=== PATIENT | female | born 1935 | race Caucasian/White ===

== ENCOUNTER 2018-02-03 12:56 | Emergency (ER) | payer MEDICARE, BC ==
[~2018-02-03] VITALS: Ht 160 cm; Wt 75.0 kg
[2018-02-03] MEDS ORDERED: lactulose 20gm/30ml cup PO ONE (15:10)
[2018-02-03] MEDS ORDERED: NA P230E PR (15:17)
[2018-02-03] MEDS ORDERED: polyethylene glycol 3350 17gm powd pack PO ONE (15:45)
[2018-02-03 15:57] VITALS: BP 136/98
[2018-02-03] MEDS ORDERED: polyethylene glycol 3350 17gm powd pack PO SCH (21:00)
== END 2018-02-03 15:59 | disposition home or self-care (01) ==
LOC: ER 12:57
DX: K59.00 Constipation, unspecified (principal); I48.91 Unspecified atrial fibrillation; Z79.899 Other long term (current) drug therapy; Z88.1 Allergy status to other antibiotic agents; Z79.01 Long term (current) use of anticoagulants
CPT/HCPCS: 99283